=== PATIENT | female | born 1955 | race Caucasian/White ===

== ENCOUNTER 2016-12-03 08:31 | Emergency (ER) | payer OTHER, MEDICAID ==
[2016-12-03] MEDS ORDERED: LISINOPRIL10 M1 PO (08:36)
[2016-12-03] MEDS ORDERED: 'TENORMIN50 MG PO (08:36)
[2016-12-03] MEDS ORDERED: PEPCID20 MG PO (11:04)
== END 2016-12-03 11:08 | disposition home or self-care (01) ==
LOC: ED 08:31
DX: L29.8 Other pruritus (principal); T38.0X5A Adverse effect of glucocorticoids and synthetic analogues, initial encounter; Z88.6 Allergy status to analgesic agent; Z88.8 Allergy status to other drugs, medicaments and biological substances; Z91.040 Latex allergy status; Z79.899 Other long term (current) drug therapy; Y92.9 Unspecified place or not applicable

== ENCOUNTER → 2016-12-04 | Outpatient (CLI) | payer OTHER, MEDICAID ==
[~2016-12-04] MED LIST: 'TENORMIN50 MG PO; LISINOPRIL10 M1 PO; PEPCID20 MG PO
== END | disposition home or self-care (01) ==
LOC: RAD
DX: M16.11 Unilateral primary osteoarthritis, right hip (principal); G89.29 Other chronic pain

== ENCOUNTER → 2016-12-29 | Outpatient (CLI) | payer OTHER, MEDICAID | END | disposition home or self-care (01) | LOC: CANPRECLI → ORTHO 03:07 | DX: M19.041 Primary osteoarthritis, right hand (principal); M19.031 Primary osteoarthritis, right wrist ==

== ENCOUNTER → 2017-04-28 | Outpatient (CLI) | payer OTHER ==
[2017-04-28 10:29] LABS: FREE T4 1.39 ng/dl (0.76-1.46)
[2017-04-28 10:34] LABS: THYROID STIM HORMONE (HS) 0.014 uIU/ml (0.358-4.75)
== END | disposition home or self-care (01) ==
LOC: LAB 02:16
PROVIDERS: Internal Medicine Endocrinology, Diabetes & Metabolism
DX: E04.1 Nontoxic single thyroid nodule (principal); E03.9 Hypothyroidism, unspecified

== ENCOUNTER 2017-10-26 10:49 | Emergency (ER) | payer OTHER ==
[~2017-10-26] VITALS: Ht 160 cm; Wt 71.7 kg
[2017-10-26] MEDS ORDERED: LEVOTHYROXINE75 MCG PO (11:13)
[2017-10-26] MEDS ORDERED: VIIBRYD40 PO (11:13)
[2017-10-26] MEDS ORDERED: HYDROCHLOROTH12.5 M3 PO (11:14)
[2017-10-26] MEDS ORDERED: ATORVASTATIN CA20 M1 PO (11:14)
[2017-10-26] MEDS ORDERED: VITAMIN D5000 UNIT PO (11:14)
[2017-10-26] MEDS ORDERED: PREDNISONE10 MG PO (11:29)
== END 2017-10-26 13:15 | disposition home or self-care (01) ==
LOC: ED 10:49
DX: M19.032 Primary osteoarthritis, left wrist (principal); R03.0 Elevated blood-pressure reading, without diagnosis of hypertension; Z88.5 Allergy status to narcotic agent; Z88.6 Allergy status to analgesic agent; Z91.040 Latex allergy status

== ENCOUNTER → 2019-04-03 | Outpatient (CLI) | payer OTHER ==
[~2019-04-03] MED LIST changes: +ATORVASTATIN CA20 M1 PO; +HYDROCHLOROTH12.5 M3 PO; +LEVOTHYROXINE75 MCG PO; +PREDNISONE10 MG PO; +VIIBRYD40 PO; +VITAMIN D5000 UNIT PO; +ZITHROMAX250 MG PO
[2019-04-03 09:48] LABS: HEMATOCRIT 41.8 % (37.0-47.0); HEMOGLOBIN 13.4 g/dl (12.0-16.0); MEAN CELL VOLUME 91.1 fl (81.0-99.0); MEAN CORPUSCULAR HGB 29.2 pg (27.0-31.0); MEAN CORPUSCULAR HGB CONC 32.1 g/dl (33.0-37.0); MEAN PLATELET VOLUME 12.6 fl (9.6-12.3); RED BLOOD COUNT 4.59 10*6/uL (4.10-5.10); RED CELL DISTRI WIDTH 13.3 % (0-14.5); WHITE BLOOD COUNT 14.9 10*3/uL (4.8-10.8)
[2019-04-03 10:15] LABS: ALBUMIN 3.8 gm/dl (3.1-4.5); ALKALINE PHOSPHATASE 80 U/L (45-117); BUN 12 mg/dl (7-24); CHLORIDE 105 mmol/L (98-107); CHOLESTEROL 261 mg/dL (<200); CREATININE 1.02 mg/dL (0.55-1.02); HDL CHOLESTEROL 59 mg/dl (40-60); LDL CHOLESTEROL 152 mg/dL (9-159); POTASSIUM 3.9 mmol/L (3.5-5.1); SGOT/AST 15 IU/L (3-35); SGPT/ALT 19 U/L (12-78); SODIUM 143 mmol/L (136-145); TOTAL PROTEIN 6.9 gm/dL (6.4-8.2); TRIGLYCERIDES 252 mg/dl (<150); VLDL CHOLESTEROL 50 mg/dL (6-40)
[2019-04-03 10:22] LABS: THYROID STIM HORMONE (HS) 0.877 uIU/ml (0.358-4.75)
== END | disposition home or self-care (01) ==
LOC: LAB 08:40
PROVIDERS: Registered Nurse Flight
DX: E03.9 Hypothyroidism, unspecified (principal); F32.9 Major depressive disorder, single episode, unspecified; E55.9 Vitamin D deficiency, unspecified; E78.00 Pure hypercholesterolemia, unspecified

== ENCOUNTER → 2019-05-28 | Outpatient (CLI) | payer OTHER | END | disposition home or self-care (01) | LOC: ORTHO 00:03 | DX: M25.561 Pain in right knee (principal); G89.29 Other chronic pain ==

== ENCOUNTER → 2020-07-23 | Outpatient (CLI) | payer OTHER | END | disposition home or self-care (01) | LOC: COVID19 14:16 | PROVIDERS: ATTEND Family Medicine | DX: Z20.828 Contact with and (suspected) exposure to other viral communicable diseases (principal) ==

== ENCOUNTER → 2023-12-07 | Outpatient (CLI) | payer MEDICARE | END | disposition home or self-care (01) | LOC: ORTHO 01:44 | PROVIDERS: ATTEND Orthopaedic Surgery | DX: M17.0 Bilateral primary osteoarthritis of knee (principal); M25.862 Other specified joint disorders, left knee; M25.861 Other specified joint disorders, right knee ==